=== PATIENT | male | born 1990 | race African-American/Black ===

== ENCOUNTER 2019-06-09 12:54 | Emergency (ER) | payer OTHER, SELFPAY ==
[2019-06-09 12:55] VITALS: BP 141/98; PULSE 88; RESP 14; TEMP 36.6; O2SAT 98; BMI 36.3
--- NOTE | 2019-06-09 13:24 | RAD_ITS ---
STUDY: X-RAY - LEFT FOOT CLINICAL: Male, 28 years old. Pain along the fourth toe following injury. TECHNIQUE: 3 view(s) of the foot. COMPARISON: None. FINDINGS: Normal talus, calcaneus, and tarsal bones. Normal visualized subtalar, talonavicular, calcaneocuboid, tarsal and tarsometatarsal articulations. Normal metatarsi. Normal metatarsophalangeal joint of the great toe. Normal tibial and fibular sesamoid bones. Normal interphalangeal joint of the great toe. Normal phalanges of the great toe. Normal second through fifth metatarsophalangeal joints. Normal interphalangeal joints and phalanges of the lesser toes. The soft tissue structures are unremarkable. RAD/Foot min 3 Views IMPRESSION: Normal x-ray examination of the foot. Electronically Signed: Deejay Espinal, at 13:52 EST , Service support ,
[2019-06-09 14:06] VITALS: RESP 16
--- NOTE | 2019-06-09 14:10 | ED.VISSUMM ---
- ER Visit Summary Date of Service: 06/09/19 Chief Complaint: Foot injury History of Present Illness: The patient is a 28 M who states that around 530 this morning he hit his left fourth toe on the crib. He noted pain. He notes continued swelling and pain near the DIP joint of the above toe. Physical Examination: Swelling and ecchymosis around the DIP joint of the left fourth toe. There is no subungual hematoma. No breaks in the skin. Test Results: X-rays of the foot revealed a nondisplaced distal phalanx fracture of the left fourth toe Emergency Department Course and Treatment: Patient will be treated with a postop shoe and pain medication. I will write him off of work today as he typically needs to wear steel toed boots. Impression: 1. Left fourth toe distal phalanx fracture This note was generated with [employer] dictation software. It may contain incorrect words, spelling, and punctuation that were not noted in review of the chart prior to signing ED Disposition - Plan for ED Patient: Disposition: Home or Assisted Living Instructions: FRACTURE, Toe [Closed] Prescriptions: Hydrocodone Bitart/Apap 5-325 [Benton 5MG-325MG] 1 tab PO Q6H PRN PRN 3 Days #10 tab PRN Reason: Pain Prescription Printed Referrals: Cesario Cannon DPM [STAFF PHYSICIAN] - 10-14 Days if not better
== END 2019-06-09 14:33 | disposition home or self-care (01) ==
PROVIDERS: Emergency Provider Emergency Medicine
DX: S92.534A Nondisplaced fracture of distal phalanx of right lesser toe(s), initial encounter for closed fracture (principal); W22.03XA Walked into furniture, initial encounter; Y93.9 Activity, unspecified; Y92.9 Unspecified place or not applicable; Y99.9 Unspecified external cause status; Z72.0 Tobacco use
CPT/HCPCS: 73630; 99283

== ENCOUNTER 2020-02-07 17:06 | Emergency (ER) | payer OTHER, SELFPAY ==
[2020-02-07 17:09] VITALS: BP 141/111; PULSE 103; RESP 18; TEMP 36.6; O2SAT 97; BMI 34.9
--- NOTE | 2020-02-07 17:43 | ED.DCSUM_ITS ---
History of Present Illness Chief Complaint: GI Bleed Detail of Chief Complaint: Patient vomited red material on Friday. Rhinorrhea cough Informant: Patient Onset: Days - Set of symptoms February 04 Context: Sudden Onset Timing: Continuous Quality: Respiratory symptoms and nausea and vomiting x1 of red appearing fluid. Location: [place] Current Severity: Mild Maximum Severity: Mild Worsened by: Nothing Relieved by: Nothing Associated Symptoms: Upper respiratory symptoms with cough and congestion Narrative: Is a 29-year-old male who is a smoker presents with 2 complaints. He had one episode of vomiting Friday morning that was red in color. He admits Friday night he went out to a bar and restaurant in [place] not wearing a mask. He denies fever or chills. He does report rhinorrhea congestion. He denies sore throat. Denies loss of taste or smell. His cough is nonproductive. He denies wheezing. He denies dyspnea or dyspnea on exertion. He denies orthopnea or PND. He denies black or maroon-colored stool. Emesis was not brown or coffee- ground in appearance. He denies orthostatic symptoms. He is not on an anticoagulant. Prior similar symptoms: No Recent Illness/Hospitalization: No - Past Medical History (1) No significant past medical history Status: Acute Past Medical History - Allergies and Home Meds Allergies/Adverse Reactions: Allergies No Known Allergies Allergy (Verified 02/07/20 17:09) Primary Care Physician: Hudson Flores MD [NON-STAFF] - As Needed Care Physician,No Primary [Primary Care Provider] - Prior records reviewed: No Past Medical History: None Surgical History: no surgical history Lives: Alone - And is single. Smoking Status: Current every day smoker Alcohol: Occasional Drugs: None Review of Systems General: Denies: Chills, Fever, Sweats Eyes: Denies: Visual changes - bilaterally, Diplopia ENT: Reports: Rhinorrhea. Denies: Bilateral ear pain, Left ear pain, Right ear pain, Sore throat, -, - Cardiovascular: Denies: Chest pain, Palpitations Respiratory: Reports: Cough. Denies: Dyspnea, Sputum, Dyspnea on exertion, Or thopnea, Paroxysmal nocturnal dyspnea, -, - Gastrointestinal: Reports: Nausea, Vomiting. Denies: Abdominal pain, Diarrhea, Melena, Hematochezia Genitourinary: Denies: Dysuria, Hematuria, Frequency Musculoskeletal: Denies: Myalgias, Arthralgias, Neck pain, Back pain, Swelling, Extremity Pain Skin: Denies: Rash, Wounds Neurological: Denies: Headache, Weakness, Numbness Endocrine: Denies: Polyuria, Polydipsia Hematologic: Denies: Easy bruising, Easy bleeding Physical Exam Vital Signs/Narrative: Vital Signs Temp Pulse Resp BP Pulse Ox 02/07/20 17:09 97.9 F 103 H 18 141/111 H 97 Inital Vital Signs reviewed: Yes General: Well nourished, Well developed, No Acute Distress Head: Normocephalic, Atraumatic Eyes: Perrl, EOMI ENT: Moist mucous membranes, TM's clear, Nasal congestion. Negative for: Dry mucous membranes, Sinus tenderness Neck: Supple, Nontender, No lymphadenopathy, No JVD Cardiovascular: Regular rate, Regular rhythm, No murmurs, Normal S1, Normal S2 Respiratory: No distress, CTA bilaterally, Chest nontender Abdomen: Soft, Nontender, Nondistended, Normal bowel sounds Back: Nontender, Normal Inspection. Negative for: CVA tenderness Extremities: Nontender, No edema. Negative for: Tenderness, Edema, Calf Tenderness Skin: Normal color, No rash Neurological: Alert, Oriented x3, Cranial nerves II-XII grossly intact, Normal Strength, Normal Sensation Psychological: Normal affect, Normal Mood Diagnostic/Tx/Re-eval Chest X-Ray - ED: 1 View, Read by ED Physician, Normal, Heart, Lungs, Mediastinum, Bony Structures, No Acute Disease, - - Double single view chest x- ray interpreted by me at 1849. Impressions Chest X-Ray 02/07/20 18:24 IMPRESSION: Normal x-ray examination of the chest. Electronically Signed: Neo Oliva MD at 19:03 EDT Tel , Service support , 02/07/20 18:24 Chest 1 View (Portable) [RAD] Stat Laboratory Results 02/07/20 02/07/20 02/07/20 17:45 17:45 17:45 WBC 7.8 RBC 4.71 Hgb 14.3 Hct 43.4 MCV 92.1 MCH 30.4 MCHC 32.9 RDW Std Deviation 42.8 RDW Coeff of Deandre 12.6 Plt Count 202 MPV 10.7 Immature Gran % (Auto) 0.300 Neut % (Auto) 56.5 Lymph % (Auto) 24.3 Benson % (Auto) 13.2 H Eos % (Auto) 5.1 H Baso % (Auto) 0.6 Absolute Neuts (auto) 4.4 Absolute Lymphs (auto) 1.90 Nucleated RBC % 0 Sodium 139 Potassium 3.9 Chloride 106 Carbon Dioxide 26.0 Anion Gap 7 BUN 11 Creatinine 1.12 Estim Creat Clear Calc 95.00 Est GFR (MDRD) Af Amer 100 Est GFR (MDRD) Non-Af 83 BUN/Creatinine Ratio 9.8 L Glucose 104 Lactic Acid 1.1 Calcium 9.0 Total Bilirubin 0.40 AST 72 H ALT 99 H Alkaline Phosphatase 111 Total Protein 8.4 H Albumin 3.8 Globulin 4.6 H Albumin/Globulin Ratio 0.8 L CBC, basic metabolic panel, is unremarkable. Lactate is normal. AST and ALT are elevated which may be secondary to the fact the patient drank heavily this weekend. Lab states his COVID test will not be back for another hour or longer. Will discharge with appropriate home-going instructions - Medical Decision Making History of going to [place] and out at restaurants and bars without mask and now complaining of rhinorrhea, cough, congestion and cough will test for COVID. This may represent viral upper restaurant infection versus COVID versus pneumonia. The vomiting occurred once and the fact that it was red would be highly unlikely to be an upper GI bleed. Most likely something he drank. ED Disposition - Plan for ED Patient: Disposition: Home or Assisted Living Diagnosis: Suspected COVID-19 virus infection Instructions: ED Upper Resp Infec No Abx Tx Referrals: Care Physician,No Primary [Primary Care Provider] - Hudson Flores MD [NON-STAFF] - As Needed Additional Instructions: You should self quarantine until you receive your COVID-19 test results. Test should be completed later on this evening.
[2020-02-07 17:48] VITALS: O2SAT 98
[2020-02-07 17:57] LABS: Absolute Neutrophil Count 4.4 X10^3/uL (2.0-7.7); Basophil# 0.05 X10^3/uL; Basophil% 0.6 % (0-1); Eosinophils% 5.1 % (0-5); Hematocrit 43.4 % (40-54); Hemoglobin 14.3 g/dL (13.0-16.5); Lymphocyte % 24.3 % (19-41); Mean Corp Hgb Conc 32.9 g/dL (32-36); Mean Corpuscular Hgb 30.4 pg (27.0-32.0); Mean Corpuscular Volume 92.1 fL (80-94); Mean Platelet Vol. 10.7 fl (6.2-12.0); Monocyte# 1.03 X10^3/uL; Monocyte% 13.2 % (0-10); NRBC Flagged by Analyzer 0 % (0-5); Neutrophil # 4.43 X10^3/uL (2.7-7.7); Neutrophil % 56.5 % (47-70); Platelet Count 202 K/mm3 (150-450); RBC Distribution Width CV 12.6 % (11.6-14.6); RBC Distribution Width SD 42.8 fl (35.1-43.9); Red Blood Count 4.71 M/mm3 (4.6-6.2); White Blood Count 7.8 K/mm3 (4.4-11.0)
[2020-02-07 18:14] LABS: ALB/GLOB Ratio 0.8 RATIO (0.9-2.4); AST(SGOT) 72 U/L (15-37); Alanine Aminotransfer ALT/SGPT 99 U/L (16-61); Albumin, Serum 3.8 g/dL (3.2-5.0); Alkaline Phosphatase 111 U/L (45-117); Anion Gap 7 (5-15); BUN 11 mg/dL (7-18); BUN/Creat Ratio 9.8 RATIO (10-20); Chloride 106 mmol/L (98-107); Creatinine, Serum 1.12 mg/dL (0.70-1.30); EST Glomerular Filtration Rate 83 mL/min (>60); Est Glom Filt Rate - Afr Amer 100 mL/min (>60); Globulin 4.6 g/dL (2.2-4.2); Glucose 104 mg/dL (74-106); Potassium 3.9 mmol/L (3.5-5.1); Protein, Total 8.4 g/dL (6.4-8.2); Sodium Level 139 mmol/L (136-145)
--- NOTE | 2020-02-07 18:24 | RAD_ITS ---
STUDY: X-RAY CHEST REASON FOR EXAM: Male, 29 years old. Threw up blood on Friday, runny nose and cough since then. TECHNIQUE: Single frontal view of the chest. COMPARISON: None. FINDINGS: The lungs are clear and expanded. There is no demonstrated pleural abnormality. Normal size heart. Normal mediastinum and bryce. Normal visualized pulmonary arteries. Normal visualized aortic arch and descending thoracic aorta. Normal visualized thoracic spine. Normal visualized ribs, clavicles, and shoulders. There is no demonstrated abnormality of the visualized soft tissue structures of the upper abdomen. RAD/Chest 1 View (Portable) IMPRESSION: Normal x-ray examination of the chest. Electronically Signed: Neo Oliva MD at 19:03 EDT Tel , Service support ,
[2020-02-07 18:30] LABS: Lactic Acid 1.1 mmol/L (0.4-1.9)
[2020-02-07 19:28] VITALS: PULSE 80; RESP 18; O2SAT 96
[2020-02-07 20:05] VITALS: BP 121/101; PULSE 84; RESP 20; O2SAT 98
== END 2020-02-07 20:12 | disposition home or self-care (01) ==
PROVIDERS: Emergency Provider Emergency Medicine
DX: Z03.818 Encounter for observation for suspected exposure to other biological agents ruled out (principal); R05 Cough; J34.89 Other specified disorders of nose and nasal sinuses; K92.0 Hematemesis; F17.200 Nicotine dependence, unspecified, uncomplicated
CPT/HCPCS: 71045; 80053; 83605; 85025; 87040; 87633; 87635; 99285; G2023; U0003

== ENCOUNTER 2020-03-09 16:07 | Emergency (ER) | payer OTHER, SELFPAY ==
[2020-03-09 16:07] VITALS: BP 118/94; PULSE 91; RESP 16; TEMP 36.4; O2SAT 97; BMI 36.8
--- NOTE | 2020-03-09 16:20 | ED.DCSUM_ITS ---
History of Present Illness Chief Complaint: Back Informant: Patient Onset: Yesterday Context: Gradual Onset Timing: Waxes and wanes Current Severity: Moderate Maximum Severity: Moderate Narrative: Patient presents with intermittent back spasms that started last evening. After work last night he was sitting on the couch watching TV. When he went to get up he felt some tightness in his back. He is had waxing and waning spasms since that time. It is somewhat worsened with movement and that when he twists to a certain degree his back will spasm. It does not radiate down his legs. He said no problems with bowel or bladder control. No history of kidney stones. He denies injury or change in activity. - Past Medical History (1) No significant past medical history Status: Chronic Past Medical History - Allergies and Home Meds Allergies/Adverse Reactions: Allergies No Known Allergies Allergy (Verified 03/09/20 16:09) Primary Care Physician: Care Physician,No Primary [Primary Care Provider] - Surgical History: no surgical history Smoking Status: Current every day smoker Review of Systems General: Denies: Chills, Fever Eyes: Denies: Visual changes - bilaterally ENT: Denies: Bilateral ear pain Cardiovascular: Denies: Chest pain Respiratory: Denies: Dyspnea, Cough Gastrointestinal: Denies: Abdominal pain, Nausea, Vomiting, Diarrhea Genitourinary: Denies: Dysuria Musculoskeletal: Reports: Back pain. Denies: Swelling, Extremity Pain Neurological: Denies: Headache, Weakness, Parasthesia Hematologic: Denies: Easy bruising, Easy bleeding Allergy: Denies: Uticaria Physical Exam Vital Signs/Narrative: Vital Signs Temp Pulse Resp BP Pulse Ox 03/09/20 16:07 97.6 F L 91 16 118/94 H 97 Inital Vital Signs reviewed: Yes General: Well nourished, Well developed Head: Normocephalic ENT: Moist mucous membranes Neck: Supple Cardiovascular: Regular rate, Regular rhythm Respiratory: No distress, CTA bilaterally Abdomen: Soft, Nontender Back: - - Reproducible tenderness in the upper lumbar region, midline as well as bilateral paraspinal muscles. No erythema or warmth. No rash or lesions. No CVA tenderness. Extremities: Nontender Skin: Normal color, No rash Neurological: Alert, Oriented x3, Normal Strength, Normal Sensation Psychological: Normal affect Diagnostic/Tx/Re-eval - Medical Decision Making Patient's exam is consistent with musculoskeletal pain. No red flags warnings for more significant etiology. He will be treated with anti-inflammatories and muscle spasm meds. 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 ED Disposition - Plan for ED Patient: Disposition: Home or Assisted Living Diagnosis: Back strain Instructions: ED Back Pain Acute or Chronic Prescriptions: cycloBENZAPRine HCl [Flexeril] 10 mg PO TID PRN #20 tab PRN Reason: Muscle Spasm Transmission Status: Pending to [id number] Naproxen [Naprosyn] 500 mg PO BID PRN PRN #20 tab PRN Reason: Pain Score 4-10/10 Transmission Status: Pending to [id number] Referrals: Karyn Mendoza MD [STAFF PHYSICIAN] - As soon as possible
== END 2020-03-09 17:07 | disposition home or self-care (01) ==
PROVIDERS: Emergency Provider Emergency Medicine
DX: S39.012A Strain of muscle, fascia and tendon of lower back, initial encounter (principal); M62.830 Muscle spasm of back; X58.XXXA Exposure to other specified factors, initial encounter; Y93.9 Activity, unspecified; Y92.9 Unspecified place or not applicable; Y99.9 Unspecified external cause status; F17.200 Nicotine dependence, unspecified, uncomplicated
CPT/HCPCS: 99282

== ENCOUNTER 2020-05-02 14:00 | Outpatient (RCR) | payer OTHER, SELFPAY ==
--- NOTE | 2020-04-04 15:31 | HP.PTEVAL_ITS ---
Patient's Visit Information SAUL LEE is a 29 year old M referred to Physical Therapy by Dr. Karyn Mendoza MD with a diagnosis of RADICULOPATHY,LUMBAR. Date of Evaluation: 04/04/20 Physical Therapist: Sj Zeng, PT, Cert MDT, OCS - Visit Plan Frequency: 2x /Week Duration: 4 Weeks Plan: PT INTERVENTIONS MODALTIES ,GRADED LUMBAR ROM ,POSTURAL EX'S,DLS LE FLEXABLITY - Subjective This 29y/o male presesnts to physical therapy with lumbar pain. Patient developed lumbar pain March 08 ,noticed at working lifting boxes then that evening when got home lifting some off from couch caused lumbar pain . Patient next day developed lumbar pain try to RTW but seen DR recommended PT ,provided muscle relaxers didnt help.Patient pain is symmtrical. Aggravating standing 10min ,sitting ,lifting ,bending. Alleviating symtoms change of postition. Denies parathesia/tingling. Bowel/bladder-. Coughing/sneezing-. Patient symptoms affects ability with job demands ,and housework tasks. Patient is currently off work ,RTW date . Patient symptoms affects QOL. SOCIAL; single. VOCATION: [employer] - Pain Bilateral Back Pain Intensity (Out of 10): 6 Pain Intensity Range: 10 - Objective POSTURE: mild foward posture,increase lordosis. GAIT: reciprocal pattern. PALAPTION: tender L-S region. SYMMTRIES: align. FLEXABLITY : hams mod loss. MMT: quads/hams 4/5,ankle 4/5,hip flexion 4-/5. LUMBAR ROM: flexion mod loss,extension mod loss -pain,side glides min loss pain to left - Special Tests L/S Slump test left side: Positive L/S Slump test right side: Positive L/S Left Straight Leg Raise: Positive L/S Right Straight Leg Raise: Positive - Goals Goal 1:: Patient to be I with HEP. Goal Time Frame: 4-6 Weeks Goal 2:: Patient decrease back mpain by 50 % or> to improve RTW. Goal Time Frame: 4-6 Weeks Goal 3:: Patient improve posture/body mechanics for job demands. Goal Time Frame: 4-6 Weeks Goal 4:: Patient to improve lumbar ROM for function of recovery Goal Time Frame: 4-6 Weeks Goal 5:: Patient improve back owestry score by 5 points or > to improve QOL and RTW. Goal Time Frame: 4-6 Weeks - Rehabilitation Potential Physical Therapy Diagnosis: This patient cdeveloped lumbar pain wih possible disc involment with decrease loss off motion flexion/extension with pain,postional symptoms affect ADL'S and return to job demands thus benifit from skilled PT. Rehabilitation Potential: Good - Anticipated Interventions Patient/Client Instruction: Educate patient on: Condition, Plan of Care For the Purpose of:: To decrease pain, To increase ROM, To improve muscle performance and motor function, To improve ability to perform ADL's, To increase tolerance to activity/condition/position, To improve ability of physical actions for home/community/work/leisure, To improve health of tissue, To decrease soft tissue restriction, To increase flexibility/ROM, To reduce risk of recurrence, To improve ability to perform tasks related to life management Therapeutic Exercise to Include: Strength training, Postural training, Flexibilty training, Passive ROM, Active ROM, Howie Exercises For the Purpose of:: To decrease pain, To increase ROM, To improve muscle perf ormance and motor function, To improve ability to perform ADL's, To increase tolerance to activity/condition/position, To improve ability of physical actions for home/community/work/leisure, To improve health of tissue, To decrease soft tissue restriction, To increase flexibility/ROM, To reduce risk of recurrence TENS: Yes IF ES: Yes Cryotherapy (ice pack, ice massage): Yes Thermo therapy (hot pack): Yes Ultrasound (thermal/non thermal): Yes For the Purpose of:: To decrease pain, To improve nutrient delivery to tissue, To increase oxygenation perfusion, To improve health of tissue, To decrease soft tissue restriction Thank you for the opportunity to evaluate your patient. For Medicare and Medicare HMO plans, please review the plan of care and approve it. It will need to be FAXED BACK to us at [phone] for Medicare purposes. For Medicare only, by signing this I certify the plan of care. Please let me know if there are questions or concerns regarding this plan of care. Physician Signature: Date:
--- NOTE | 2020-08-09 14:40 | HP.PT.NRP ---
SAUL LEE was seen in my office for initial evaluation on 04/04/20. The following Plan of Care was established for this patient: Initial Frequency: 2x /Week Initial Duration: 4 Weeks Patient/Client Instruction: Educate patient on: Condition, Plan of Care For the Purpose of:: To decrease pain, To increase ROM, To improve muscle performance and motor function, To improve ability to perform ADL's, To increase tolerance to activity/condition/position, To improve ability of physical actions for home/community/work/leisure, To improve health of tissue, To decrease soft tissue restriction, To increase flexibility/ROM, To reduce risk of recurrence, To improve ability to perform tasks related to life management Therapeutic Exercise to Include: Strength training, Postural training, Flexibilty training, Passive ROM, Active ROM, Howie Exercises For the Purpose of:: To decrease pain, To increase ROM, To improve muscle performance and motor function, To improve ability to perform ADL's, To increase tolerance to activity/condition/position, To improve ability of physical actions for home/community/work/leisure, To improve health of tissue, To decrease soft tissue restriction, To increase flexibility/ROM, To reduce risk of recurrence TENS: Yes IF ES: Yes Cryotherapy (ice pack, ice massage): Yes Thermo therapy (hot pack): Yes Ultrasound (thermal/non thermal): Yes For the Purpose of:: To decrease pain, To improve nutrient delivery to tissue, To increase oxygenation perfusion, To improve health of tissue, To decrease soft tissue restriction This patient was last seen in our office . Pertinent comments regarding their Physical therapy will appear below: Patient seen for PT for left lumbar radiculopathy with PT tx focusing on DLS ,postural ex's yo HEP. At this point I will be discontinuing this patient from physical therapy. I would be happy to see this patient again in the future if found appropriate by the physician. Thank you! Sj Zeng, PT, Cert MDT, OCS
== END 2020-05-02 19:00 | disposition home or self-care (01) ==
LOC: PT 14:00
PROVIDERS: Referring Provider Family Medicine; Visit Provider Family Medicine
DX: M54.16 Radiculopathy, lumbar region (principal)
CPT/HCPCS: 97014; 97110; 97161; G0283

== ENCOUNTER 2020-05-13 17:45 | Emergency (ER) | payer OTHER, SELFPAY ==
[2020-05-13 17:45] VITALS: BP 146/94; PULSE 101; RESP 16; TEMP 36.5; O2SAT 100
[2020-05-13 17:46] VITALS: BP 146/94; PULSE 96; RESP 16; TEMP 36.5; O2SAT 100; BMI 36.6
--- NOTE | 2020-05-13 17:55 | ED.DCSUM_ITS ---
History of Present Illness Chief Complaint: Lower Extremity Injury Informant: Patient Narrative: 29-year-old male presenting with bilateral foot pain which he feels in his heels and the bottoms of his feet. He states that he had back pain recently and was off of work for a couple of weeks. He states that when he went back to work his feet started to hurt. He does wear work boots. He states that they have been replaced. He states that he just has not been on his feet as much and working vigorously makes an ache. He has no history of gout. He has no history of trauma. He states that he has had intermittent swelling although his feet are not swollen today. Has not been taking anything for pain. Past Medical History - Allergies and Home Meds Allergies/Adverse Reactions: Allergies No Known Allergies Allergy (Verified 05/13/20 17:55) Primary Care Physician: Care Physician,No Primary [Primary Care Provider] - Past Medical History: - - No significant past medical history Surgical History: no surgical history Lives: Alone Smoking Status: Current every day smoker Alcohol: None Drugs: None Review of Systems General: Denies: Chills, Fever, Sweats Eyes: Denies: Visual changes - bilaterally, Diplopia ENT: Denies: Rhinorrhea, Sore throat Cardiovascular: Denies: Chest pain, Palpitations Respiratory: Denies: Dyspnea, Cough, Dyspnea on exertion Gastrointestinal: Denies: Abdominal pain, Nausea, Vomiting, Diarrhea, Melena, Hematochezia Genitourinary: Reports: Dysuria Musculoskeletal: Reports: - - Bilateral heel and foot pain Skin: Denies: Rash, Wounds Neurological: Denies: Headache, Weakness, Numbness Endocrine: Denies: Polyuria, Polydipsia, Heat intolerance, Cold intolerance, -, - Physical Exam Vital Signs/Narrative: Vital Signs Temp Pulse Resp BP Pulse Ox 05/13/20 17:46 97.7 F L 96 16 146/94 H 100 05/13/20 17:45 97.7 F L 101 H 16 146/94 H 100 General: Well nourished, Well developed, No Acute Distress Head: Normocephalic, Atraumatic Eyes: Perrl, EOMI Cardiovascular: Regular rate, Regular rhythm, No murmurs Respiratory: No distress, CTA bilaterally, Chest nontender Extremities: - - Tenderness to palpation to the bilateral heels the bottoms of the foot bilaterally. No swelling. There is no ecchymosis or rash. There is no deformities. Bilateral feet are neurovascularly intact.. Negative for: E anastacia, Calf Tenderness Skin: Normal color, No rash Neurological: Alert, Oriented x3 Psychological: Normal affect, Normal Mood Diagnostic/Tx/Re-eval Clinical Impression(s) from Imaging Studies Foot X-Ray 05/13/20 18:14 IMPRESSION: Normal x-ray examination of the foot. Electronically Signed: Jose De Jesus Soto MD at 19:19 EDT , Service support , Foot X-Ray 05/13/20 18:19 IMPRESSION: Normal x-ray examination of the foot. Electronically Signed: Jose De Jesus Soto MD at 19:20 EDT , Service support , - Medical Decision Making Patient presents with bilateral foot pain. Unable elicit some pain on the heels. He states it is worse in the morning. X-rays of the bilateral feet are negative. He is given Naprosyn in the ED. He requests a work note until his feet can get better. I suspect this is an overuse pain and possibly plantar fasciitis. Patient is given instructions on care. He is given return precautions. Impression: 1. Bilateral foot strain ED Disposition - Plan for ED Patient: Disposition: Home or Assisted Living Instructions: ED Sprain Foot Prescriptions: Naproxen [Naprosyn] 500 mg PO BID PRN #30 tab Transmission Status: Received by [facility]/pharmacy #[id number] Referrals: Care Physician,No Primary [Primary Care Provider] -
--- NOTE | 2020-05-13 18:14 | RAD_ITS ---
STUDY: X-RAY - RIGHT FOOT CLINICAL: Male, 29 years old. Ankle swelling and foot pain, no known injury. TECHNIQUE: 3 view(s) of the foot. COMPARISON: None. FINDINGS: Normal talus, calcaneus, and tarsal bones. Normal visualized subtalar, talonavicular, calcaneocuboid, tarsal and tarsometatarsal articulations. Normal metatarsi. Normal metatarsophalangeal joint of the great toe. Normal tibial and fibular sesamoid bones. Normal interphalangeal joint of the great toe. Normal phalanges of the great toe. Normal second through fifth metatarsophalangeal joints. Normal interphalangeal joints and phalanges of the lesser toes. The soft tissue structures are unremarkable. RAD/Foot min 3 Views IMPRESSION: Normal x-ray examination of the foot. Electronically Signed: Jose De Jesus Soto MD at 19:19 EDT , Service support ,
--- NOTE | 2020-05-13 18:19 | RAD_ITS ---
STUDY: X-RAY - LEFT FOOT CLINICAL: Male, 29 years old. Ankle swelling and foot pain, no known injury. TECHNIQUE: 3 view(s) of the foot. COMPARISON: 06/09/2019 FINDINGS: Normal talus, calcaneus, and tarsal bones. Normal visualized subtalar, talonavicular, calcaneocuboid, tarsal and tarsometatarsal articulations. Normal metatarsi. Normal metatarsophalangeal joint of the great toe. Normal tibial and fibular sesamoid bones. Normal interphalangeal joint of the great toe. Normal phalanges of the great toe. Normal second through fifth metatarsophalangeal joints. Normal interphalangeal joints and phalanges of the lesser toes. The soft tissue structures are unremarkable. RAD/Foot min 3 Views IMPRESSION: Normal x-ray examination of the foot. Electronically Signed: Jose De Jesus Soto MD at 19:20 EDT , Service support ,
[2020-05-13] MEDS: Naproxen 500 MG Tablet PO (18:35)
[2020-05-13 19:37] VITALS: PULSE 95; RESP 18; O2SAT 98
== END 2020-05-13 19:44 | disposition home or self-care (01) ==
PROVIDERS: Emergency Provider Student in an Organized Health Care Education/Training Program
DX: S96.911A Strain of unspecified muscle and tendon at ankle and foot level, right foot, initial encounter (principal); S96.912A Strain of unspecified muscle and tendon at ankle and foot level, left foot, initial encounter; X58.XXXA Exposure to other specified factors, initial encounter; Y93.9 Activity, unspecified; Y92.9 Unspecified place or not applicable; Y99.9 Unspecified external cause status; R30.0 Dysuria; F17.200 Nicotine dependence, unspecified, uncomplicated
CPT/HCPCS: 73630; 99283

== ENCOUNTER 2021-12-13 11:54 | Emergency (ER) | payer SELFPAY ==
[2021-12-13 11:55] VITALS: BP 157/96; PULSE 95; RESP 18; TEMP 36.7; O2SAT 99; BMI 34.9
--- NOTE | 2021-12-13 12:01 | RAD_ITS ---
STUDY: X-RAY CHEST REASON FOR EXAM: Male, 31 years old. Dry cough. TECHNIQUE: PA and lateral views of the chest. COMPARISON: Comparison is made with prior study 02/07/2020. FINDINGS: There is hyperinflation of the lungs consistent with chronic obstructive lung disease (COPD). There is no demonstrated pleural abnormality. Normal size heart. Normal mediastinum and bryce. Normal visualized pulmonary arteries. Normal visualized aortic arch and descending thoracic aorta. Normal visualized thoracic spine. Normal visualized ribs, clavicles, and shoulders. There is no demonstrated abnormality of the visualized soft tissue structures of the upper abdomen. RAD/Chest PA and Lateral IMPRESSION: Hyperinflation. Electronically Signed: Deejay Espinal MD at 12:24 EDT ,
--- NOTE | 2021-12-13 12:10 | EX.ED.DYSGE1 ---
HPI <MERA Sorto - Last Filed: 12/13/21 12:48> History of Present Illness Chief Complaint: Cough Narrative Narrative: 31-year-old male with history of tobacco use, presents to the emergency department with cough since last evening. Patient states that both of his children are ill, he developed a cough last night, and has difficulty sleeping secondary to cough. Patient denies any fevers or chills. Patient does state that he also has diarrhea however he denies any blood in stool or vomit. He did not get the COVID-19 vaccination, is not vaccinated for flu. PFSH <MERA Sorto - Last Filed: 12/13/21 12:48> [facility] Medical History no medical history Home Medications naproxen 500 mg PO BID PRN #30 tab 05/13/20 [Rx Last Taken Unknown] albuterol sulfate [ProAir RespiClick] 2 inh INHALATION Q6H PRN 14 Days #1 ea 12/13/21 [Rx Last Taken Unknown] Allergy/AdvReac Type Severity Reaction Status Date / Time No Known Allergies Allergy Verified 12/13/21 11:56 Surgical History no surgical history Social History Smoking Status: Current every day smoker tobacco type: cigarettes ROS <MERA Sorto - Last Filed: 12/13/21 12:48> ROS ED ROS Narrative Constitutional: Negative for fever, chills, weight loss, weakness Eyes: Negative for vision loss, vision change, double vision ENT: Negative for any sore throat, ear pain, congestion Cardiovascular: Negative for any chest pain, tightness, palpitations, racing heartbeat Respiratory: Negative for any sputum production, hemoptysis, shortness of breath, shortness of breath on exertion, orthopnea. Positive for cough Gastrointestinal: Negative for any abdominal pain, nausea, vomiting, constipation, blood in stool, blood in vomit. Positive for diarrhea : Negative for any urinary frequency, incontinence, dysuria, retention, blood in urine Muscle skeletal: Negative for any muscle joint pain, stiffness, myalgias, arthralgias, neck pain, back pain Neurological: Negative for any headache, dizziness, syncope, numbness or tingling Skin: Negative for any rashes, lumps, itching, abrasions, lacerations Psychiatric: Negative for any depression, anxiety, stress, suicidal ideation, homicidal ideation Hematologic: Negative for any easy bruising, excessive bruising, easy bleeding Allergies: Negative for any eczema, hives, rash EXAM <MERA Sorto - Last Filed: 12/13/21 12:48> Physical Exam Narrative Exam Narrative: Vital signs reviewed. HEET: Head normocephalic atraumatic, TMs clear bilaterally. Posterior pharynx is clear, moist mucous membranes. Nares clear bilaterally. Neck: Supple with no lymphadenopathy or tenderness. No signs of meningismus, negative jolt sign. Cardiac: Regular rate and rhythm no murmurs gallops or rubs, equal peripheral pulses bilaterally. Respiratory: Lungs clear to auscultation bilaterally. No chest tenderness. Dry cough Abdomen: Soft, nontender, nondistended. No abdominal bruit or pulsatile masses. No hepatosplenomegaly Extremities: No peripheral edema, no signs of gross trauma or deformity. Active full range of motion of all extremities. Neuro: Cranial nerves II through XII intact, no focal neurological deficits. Skin: Clean dry and intact with no rash, purpura, petechiae, vesicles or pustules. Backslash flank: No CVA tenderness, no midline spinal tenderness, no deformity. Psych: Normal mood and affect. No SI, HI or acute psychosis. Const Vital Signs: 12/13/21 11:55 Temperature 98.1 F Temperature Source Temporal Pulse Rate 95 Respiratory Rate 18 Blood Pressure 157/96 H Blood Pressure Mean 116 Pulse Ox 99 Oxygen Delivery Method Room Air Positive well nourished and well developed General Appearance ED: well developed <Chris Gonzalez MD - Last Filed: 12/13/21 22:00> Physical Exam Const Vital Signs: 12/13/21 11:55 Temperature 98.1 F Temperature Source Temporal Pulse Rate 95 Respiratory Rate 18 Blood Pressure 157/96 H Blood Pressure Mean 116 Pulse Ox 99 Oxygen Delivery Method Room Air MDM <MERA Sorto - Last Filed: 12/13/21 12:48> [facility] Narrative Medical decision making narrative: Patient appears well, patient appears nontoxic, vital signs are stable. Patient presents to the emergency department with complaints of a cough since last evening. Patient seems to be in no respiratory distress, patient did receive a chest x-ray, chest x-ray showed hyperinflation however no acute abnormality. Patient did receive a rapid COVID-19 test which was negative. I do believe the patient is suffering from a viral illness however due to the smoking history, patient was placed on albuterol inhaler and instructed to quit smoking. Patient verbally understands. At this time there is no indication of any antibiotics. Patient stable for discharge. Instructed return for worsening symptoms Radiography Diagnostic Testing: Clinical Impression(s) from Imaging Studies Chest X-Ray 12/13/21 12:01 IMPRESSION: Hyperinflation. Electronically Signed: Deejay Espinal MD at 12:24 EDT , <Crhis Gonzalez MD - Last Filed: 12/13/21 22:00> [facility] Narrative Medical decision making narrative: I have personally performed a face to face assessment of the patient and have reviewed the OLIVIA Note. I performed a substantive portion of the visit including all aspects of the following. My mims findings include: History is cough. Exam is [afebrile. Vital signs noted. Regular rate and rhythm. Lungs clear to auscultation bilaterally. Abdomen soft and nontender.] Medical Decision Making [check chest x-ray. Check rapid COVID. Discharge.] Other additions or changes: [None] Radiography Diagnostic Testing: Clinical Impression(s) from Imaging Studies Chest X-Ray 12/13/21 12:01 IMPRESSION: Hyperinflation. Electronically Signed: Deejay Espinal MD at 12:24 EDT , Discharge Plan Triage Chief Complaint: Cough ED Midlevel Provider: Levy Armenta ED Provider: Chris Gonzalez Dx/Rx/DC Orders Clinical Impression: Viral syndrome Instructions: Respiratory Viral Illness Ch Tx Prescriptions: New ProAir RespiClick 90 mcg/actuation aerosol powdr breath activated 2 inh inhalation Q6H PRN (Reason: shortness of breath) 14 Days Qty: 1 RF: 0 No Action naproxen 500 MG tablet 500 mg PO BID PRN Qty: 30 RF: 0 Primary Care Provider: Care Physician,No Primary Referrals: Luiz Mendes MD [STAFF PHYSICIAN] - Care Physician,No Primary [Primary Care Provider] - Activity Restrictions/Additional Instructions: Use albuterol inhaler as needed. Please use ibuprofen, Tylenol for any pain or fevers. Please maintain hydration Print Language: [place] Disposition Disposition: Home, Self Care Discharge Date/Time: 12/13/21 12:51
== END 2021-12-13 12:51 | disposition home or self-care (01) ==
PROVIDERS: Emergency Provider Emergency Medicine; Visit Provider Emergency Medicine
DX: B34.9 Viral infection, unspecified (principal); Z20.822 Contact with and (suspected) exposure to COVID-19; R19.7 Diarrhea, unspecified; F17.210 Nicotine dependence, cigarettes, uncomplicated; Z79.1 Long term (current) use of non-steroidal anti-inflammatories (NSAID)
CPT/HCPCS: 71046; 87811; 99282

== ENCOUNTER 2021-12-21 07:17 | Emergency (ER) | payer SELFPAY ==
[2021-12-21 07:18] VITALS: BP 151/97; PULSE 107; RESP 16; TEMP 36.2; O2SAT 97; BMI 34.2
--- NOTE | 2021-12-21 07:36 | ED.VIS.LOWEX ---
HPI History of Present Illness Chief Complaint: Lower Extremity Injury Narrative Narrative: 31-year-old male presenting with nontraumatic right ankle pain. He states that it started hurting yesterday. He describes it as the medial and lateral malleolus. He does not have any swelling. No numbness or tingling. He is ambulatory. He states he took ibuprofen last night but this did not help significantly. Patient states he is not able to work today due to pain. PFSH PFSH Home Medications naproxen 500 mg PO BID PRN #30 tab 05/13/20 [Rx Last Taken Unknown] albuterol sulfate [ProAir RespiClick] 2 inh INHALATION Q6H PRN 14 Days #1 ea 12/13/21 [Rx Last Taken Unknown] naproxen [Naprosyn] 500 mg PO BID PRN #20 tab 12/21/21 [Rx Last Taken Unknown] Allergy/AdvReac Type Severity Reaction Status Date / Time No Known Allergies Allergy Verified 12/21/21 07:18 Social History Smoking Status: Current every day smoker tobacco type: cigarettes ROS ROS ED Constitutional Constitutional ED: Denies chills, fever(s) or sweats Eyes Eyes: Denies blurry vision or change in vision ENT ENT ED: Denies ear pain or sore throat Cardiovascular Cardiovascular: Denies chest pain, palpitations or racing heartbeat Respiratory/Chest Respiratory/Chest: Denies cough, dyspnea or sputum Gastrointestinal Gastrointestinal: Denies abdominal pain, constipation, diarrhea, nausea or vomiting Genitourinary Genitourinary ED: Denies dysuria, hematuria or urinary frequency Musculoskeletal Musculoskeletal: Reports other Details: Right ankle pain Integumentary Denies abscess, Abrasions or rash Neurologic Neurologic: Denies headache(s), paresthesias or weakness Psychiatric Psychiatric: Denies anxiety, depression, suicidal ideation or suicidal thoughts Endocrine Endocrinology: Denies polydipsia or polyuria EXAM Physical Exam Const Vital Signs: 12/21/21 07:18 Temperature 97.2 F L Temperature Source Temporal Pulse Rate 107 H Respiratory Rate 16 Blood Pressure 151/97 H Blood Pressure Mean 115 Pulse Ox 97 Oxygen Delivery Method Room Air Positive well nourished General Appearance ED: NAD HEENT normocephalic and atraumatic Resp normal respiratory effort and clear to auscultation bilaterally Cardio regular rate and regular rhythm Extremity Extremity Narrative: Right foot and ankle exam. Tenderness palpation medial lateral malleolus. No foot tenderness. Pedal pulses 2+. Sensation intact. No obvious swelling, deformity, erythema. Psych mental status grossly normal Skin no wounds Lesions: no lesions Rashes: no rashes MDM MDM MDM Narrative Medical decision making narrative: After speaking with him at length he does state that he has old shoes that he does lean outward on his feet with these. He is not had any injury which would need x-rays. The patient himself states that he does not think it would have any value. He request a work note because of his pain. He is counseled to ice and elevate the right ankle. He will be given an Jorge wrap for comfort. He does not require crutches. He was given follow-up with a primary care provider as he is currently in between PCPs. Patient given a prescription for Naprosyn with first dose in the ER. Patient discharged home in stable condition. Impression: 1. Right ankle strain Discharge Plan Triage Chief Complaint: Lower Extremity Injury ED Provider: Sergo Vitale Dx/Rx/DC Orders Instructions: ED Ankle Sprain (Adult) Prescriptions: New naproxen [Naprosyn] 500 mg tablet 500 mg PO BID PRN (Reason: pain) Qty: 20 RF: 0 No Action naproxen 500 MG tablet 500 mg PO BID PRN Qty: 30 RF: 0 ProAir RespiClick 90 mcg/actuation aerosol powdr breath activated 2 inh inhalation Q6H PRN (Reason: shortness of breath) 14 Days Qty: 1 RF: 0 Primary Care Provider: Care Physician,No Primary Referrals: Go Pedraza MD [STAFF PHYSICIAN] - 3-5 Days Care Physician,No Primary [Primary Care Provider] - Disposition Disposition: Home, Self Care
[2021-12-21] MEDS: Naproxen 500 MG Tablet PO (07:51)
== END 2021-12-21 07:53 | disposition home or self-care (01) ==
PROVIDERS: Emergency Provider Student in an Organized Health Care Education/Training Program; Visit Provider Student in an Organized Health Care Education/Training Program
DX: S96.911A Strain of unspecified muscle and tendon at ankle and foot level, right foot, initial encounter (principal); X58.XXXA Exposure to other specified factors, initial encounter; F17.210 Nicotine dependence, cigarettes, uncomplicated
CPT/HCPCS: 99283

== ENCOUNTER 2022-08-16 12:00 | Emergency (ER) | payer SELFPAY ==
[2022-08-16 12:01] VITALS: BP 150/101; PULSE 81; RESP 18; TEMP 35.6; O2SAT 99; BMI 35.1
--- NOTE | 2022-08-16 13:11 | CM.ED ---
SW Note Referral Source: Case Find Referral Reason: No PCP, No insurance SW met with patient and introduced herself and role as [facility] Jelly. SW inquired about patient's current PCP and insurance. Patient stated he didn't have either and was interested in information. SW provided patient with Medicaid application as well as the IRE resource list and local PCPs with [facility] and [facility]. Patient was receptive towards information and voiced no other concerns or needs at this time. SW remains available if needs arise. Winsome Iglesias EDUCATIONAL DIAGNOSTICIAN, JOSSIE
--- NOTE | 2022-08-16 13:55 | ED.VIS.GI ---
HPI HPI - GI History of Present Illness Chief Complaint: Abd Pain Narrative Narrative: 31-year-old male with no significant medical history presents with right lower quadrant abdominal pain. Patient states this started this morning. He had a little bit of diarrhea today. No fever, chills, nausea, vomiting. He denies any trauma to the abdomen. He states he had no surgical history patient. Patient states has had this pain before and did not really think about it. He states it went away on its own but he is not sure how long it lasted. Patient told his mother of this pain and she sent him to be evaluated due to her concern for acute appendicitis. PFSH PFSH Medical History no medical history Home Medications NK 08/16/22 [History Last Taken Unknown] Allergy/AdvReac Type Severity Reaction Status Date / Time No Known Allergies Allergy Verified 08/16/22 12:02 Surgical History no surgical history Social History Smoking Status: Current every day smoker tobacco type: cigarettes ROS ROS ED Constitutional Constitutional ED: Denies chills or fever(s) ENT ENT ED: Denies rhinorrhea or sore throat Cardiovascular Cardiovascular: Denies chest pain or palpitations Respiratory/Chest Respiratory/Chest: Denies cough or dyspnea Gastrointestinal Gastrointestinal: Reports abdominal pain and diarrhea; Denies constipation, melena or nausea Genitourinary Genitourinary ED: Denies dysuria or hematuria Musculoskeletal Musculoskeletal: Denies arthralgias or back pain Integumentary Denies abscess or Abrasions Neurologic Neurologic: Denies headache(s) or paresthesias Psychiatric Psychiatric: Denies anxiety or depression Endocrine Endocrinology: Denies polydipsia or polyphagia EXAM Physical Exam Const Vital Signs: 08/16/22 12:01 Temperature 96.1 F L Temperature Source Temporal Pulse Rate 81 Respiratory Rate 18 Blood Pressure 150/101 H Blood Pressure Mean 117 Pulse Ox 99 Oxygen Delivery Method Room Air Positive well nourished General Appearance ED: NAD; Negative for pallor HEENT Reports moist mucous membranes normocephalic and atraumatic Eyes PERRL and EOMs intact bilaterally Neck no lymphadenopathy Resp normal respiratory effort and clear to auscultation bilaterally Cardio regular rate and regular rhythm GI Palpation: tender RLQ Extremity full ROM General Extremety ED: Negative for edema or tenderness General Extremity: Negative for edema Neuro CN's II-XII intact bilaterally, moves all extremities and no sensory deficits noted Sensorium / Orientation: alert Psych mental status grossly normal and thought process normal Skin no wounds General Skin Exam: Negative for jaundice or pallor MDM MDM MDM Narrative Medical decision making narrative: Patient presenting with right lower quadrant abdominal pain. He does report that he is had this before and it resolved on its own. He is not had a fever, nausea, vomiting. He does admit to some diarrhea today. He states his pain is not severe declines analgesia. He states he does not want to get for nausea. I do not suspect acute appendicitis based on his exam although he does have some right lower quadrant tenderness. This is very benign and is not requiring any medications to treat it. Also consider kidney stone in the diagnosis. I did obtain a urinalysis which was negative for occult blood or infection. CBC with differential to assess for evidence of infection and his white blood cell count is normal with no left shift with a normal hemoglobin and normal platelets. Renal function and electrolytes are within normal limits. At this point patient counseled that he likely does not have appendicitis and although I did offer a CT scan to them he declines. I did enrollment counselor him that if he has new or worsening pain or symptoms he should return to the emergency room. He acknowledged understanding this. Patient stable discharge at this time. Impression: 1. Right lower quadrant pain Lab Data Labs: Laboratory Results - last 24 hr 08/16/22 08/16/22 08/16/22 14:38 14:38 14:38 WBC 6.7 RBC 5.31 Hgb 16.2 Hct 48.0 MCV 90.4 MCH 30.5 MCHC 33.8 RDW Std Deviation 41.7 RDW Coeff of Deandre 12.6 Plt Count 240 MPV 9.9 Immature Gran % (Auto) 0.300 Neut % (Auto) 55.1 Lymph % (Auto) 31.4 Turner % (Auto) 9.8 Eos % (Auto) 2.5 Baso % (Auto) 0.9 Absolute Neuts (auto) 3.7 Absolute Lymphs (auto) 2.11 Nucleated RBC % 0 Sodium 137 Potassium 4.1 Chloride 105 Carbon Dioxide 26.0 Anion Gap 6 BUN 13 Creatinine 0.88 Estim Creat Clear Calc 118.75 Est GFR (MDRD) Af Amer 131 Est GFR (MDRD) Non-Af 108 BUN/Creatinine Ratio 14.8 Glucose 95 Calcium 9.7 Urine Color Yellow Urine Clarity Sl. Cloudy Urine pH 6.0 Ur Specific [place] 1.020 Urine Protein Negative Urine Glucose (UA) Normal Urine Ketones Negative Urine Occult Blood Negative Urine Nitrite Negative Urine Bilirubin Negative Urine Urobilinogen Normal Ur Leukocyte Esterase Negative Urine RBC 0 SEEN Urine WBC 0 SEEN Ur Squamous Epith Cells 0-5 SEEN Urine Bacteria 0 SEEN Urine Mucus 0 SEEN Discharge Plan Triage Chief Complaint: Abd Pain ED Provider: Sergo Vitale Dx/Rx/DC Orders Prescriptions: No Action NK Primary Care Provider: Care Physician,No Primary Referrals: Care Physician,No Primary [Primary Care Provider] -
[2022-08-16 14:45] LABS: Bacteria 0 SEEN /hpf (None Seen); Mucous, Urine 0 SEEN /hpf (<or=2+); Red Blood Cells-Urine 0 SEEN /hpf (0-5); White Blood Cells 0 SEEN /hpf (0-5)
[2022-08-16 14:47] LABS: Absolute Lymphocyte Count 2.11 X10^3/uL (0.83-4.51); Absolute Neutrophil Count 3.7 X10^3/uL (2.0-7.7); Basophil# 0.06 X10^3/uL; Basophil% 0.9 % (0-1); Eosinophil# 0.17 X10^3/uL; Eosinophils% 2.5 % (0-5); Hemoglobin 16.2 g/dL (13.0-16.5); Lymphocyte # 2.11 X10^3/ul (0.83-4.51); Lymphocyte % 31.4 % (19-41); Mean Corp Hgb Conc 33.8 g/dL (32-36); Mean Corpuscular Hgb 30.5 pg (27.0-32.0); Mean Corpuscular Volume 90.4 fL (80-94); Mean Platelet Vol. 9.9 fl (6.2-12.0); Monocyte# 0.66 X10^3/uL; Monocyte% 9.8 % (0-10); NRBC Flagged by Analyzer 0 % (0-5); Neutrophil # 3.71 X10^3/uL (2.7-7.7); Neutrophil % 55.1 % (47-70); Platelet Count 240 K/mm3 (150-450); RBC Distribution Width CV 12.6 % (11.6-14.6); RBC Distribution Width SD 41.7 fl (35.1-43.9); Red Blood Count 5.31 M/mm3 (4.6-6.2); White Blood Count 6.7 K/mm3 (4.4-11.0)
[2022-08-16 14:50] LABS: Color, Urine Yellow (Yellow); Glucose, Dipstick Normal (Normal); Ketone-Dipstick Negative (Negative); Leukocyte Esterase-Dipstick Negative /ul (Negative); Nitrite-Dipstick Negative (Negative); Occult Blood-Urine Negative /ul (Negative); Protein-Dipstick Negative (Negative); Urine Bilirubin Dipstick Negative (Negative); Urine Clarity Sl. Cloudy (Clear); Urine Urobilinogen Normal (Normal)
[2022-08-16 14:59] LABS: Squamous Epithelial Cells - UA 0-5 SEEN /hpf (0-5)
[2022-08-16 15:01] LABS: Anion Gap 6 (5-15); BUN 13 mg/dL (7-18); BUN/Creat Ratio 14.8 RATIO (10-20); Calcium,Total 9.7 mg/dL (8.5-10.1); Chloride 105 mmol/L (98-107); Creatinine, Serum 0.88 mg/dL (0.70-1.30); EST Glomerular Filtration Rate 108 mL/min (>60); Est Glom Filt Rate - Afr Amer 131 mL/min (>60); Estimated Creatinine Clearance 118.75 ml/min; Glucose 95 mg/dL (74-106); Potassium 4.1 mmol/L (3.5-5.1); Sodium Level 137 mmol/L (136-145)
== END 2022-08-16 16:05 | disposition home or self-care (01) ==
PROVIDERS: Emergency Provider Student in an Organized Health Care Education/Training Program; Visit Provider Student in an Organized Health Care Education/Training Program
DX: R10.31 Right lower quadrant pain (principal); F17.210 Nicotine dependence, cigarettes, uncomplicated; R19.7 Diarrhea, unspecified; R10.813 Right lower quadrant abdominal tenderness
CPT/HCPCS: 80048; 81001; 85025; 99283; A4216

== ENCOUNTER 2024-12-24 13:30 | Outpatient (RCR) | payer BC, SELFPAY ==
--- NOTE | 2024-11-23 10:44 | HP.PTEVAL_ITS ---
Patient's Visit Information Visit Information Visit Information: SAUL LEE is a 34 year old M referred to Physical Therapy by MERA Velazco with a diagnosis of LUMBAGO WITH SCIATICA. Date of Evaluation: 11/19/24 Physical Therapist: Sj Zeng, PT, Cert MDT, OCS Visit Plan Frequency: 2x /Week Duration: 4 Weeks Plan: PT INTERVENTIONS MANUAL THERAPY STICK /FOAM ROLL IT BAND, ROM/FLEXIBILITY HIPS ,STRENGTHENING HIP ( GLUT MEDIUS), CORE STRENGTHENING ,FUNCTIONAL STRENGTHENING , AND MODALITIES PRN Subjective Subjective: This 34 y/o male presents to physical therapy with lumbar radiculopathy. Patient seen DR and recommended PT lumbar x-ray - and hip x-rays showed Abundance of soft tissue with moderate symmetric bilateral hip narrowing. Patient has no back pain with lateral hip to knee . Patient has had left lateral hip pain since last February. Provided tramadol initially tried prednisone pack. Aggravating factors standing ,walking ,sitting worse. Described as burring, Alleviating rest ,otherwise nothing. C/O paresthesia/tingling left lateral leg. Coughing/sneezing -. Bowel /bladder-. Pain can affects sleeping. Patient condition affects QOL and function ./walking. Goals to decrease pain. VOCATION: [place] SOCIAL: Objective Objective: POSTURE : mild forward posture GAIT: ambulates with slight decrease stance time LLE antalgic gait PALAPTION: tender IT BAND and greater trochanter NEURO: occasional paresthesia/tingling left lateral hip ,reflexes L3-4,L4-5 , L5-S1 2/3 FLEXABILITY: hamstrings min tight ,piriformis mod tight PROM HIP : IR 45 ,ER 40 ,hip flexion 100 left ,right 105 degrees all with pain ER MMT: quads/hamstrings 4/5 ,( peak force) hip flexion 26.9 left ,29.9 right ,left hip 16.9 , LUMBAR ROM : flexion min loss ,extension min loss,side glides min loss Special Tests L/S Slump test left side: Negative L/S Slump test right side: Negative L/S Left Straight Leg Raise: Negative L/S Right Straight Leg Raise: Negative R Hip Trendelenberg - Glut Medius: Positive L Hip Scour: Positive L Hip Trendelenberg - Glut Medius: Positive Balance/Special Test Scores Oswestry Low Back Score: 20 Goals Goal 1:: Patient to be I with HEP for lumbar Goal Time Frame: 4-6 Weeks Goal 2:: Patient to improve hip ROM by 5-10 degrees without pain to improve stairs Goal Time Frame: 4-6 Weeks Goal 3:: Patient to improve back oswestry score by 5 points to improve QOL Goal Time Frame: 4-6 Weeks Goal 4:: Patient to demonstrate 50 % improvement with less pain and improve function and gait Goal Time Frame: 4-6 Weeks Goal 5:: Patient to improve peak force hip abduction and flexion by 5-10# to improve gait. Goal Time Frame: 4-6 Weeks Rehabilitation Potential Physical Therapy Diagnosis: This patient has left hip pain worse than right with decrease ROM ,weakness ,pain worse with walking and standing affects daily function thus benefit from skilled PT Rehabilitation Potential: Good Anticipated Interventions Patient/Client Instruction: Educate patient on: Condition and Plan of Care For the Purpose of:: To decrease pain, To increase ROM, To improve muscle performance and motor function, To improve ability to perform ADL's, To increase tolerance to activity/condition/position, To improve ability of physical actions for home/community/work/leisure, To improve health of tissue, To decrease soft tissue restriction, To increase flexibility/ROM, To reduce risk of recurrence and To improve tolerance to ADL's Therapeutic Exercise to Include: Strength training, Postural training, Flexibilty training, Dynamic Lumbar Stabilization and Howie Exercises For the Purpose of:: To decrease pain, To increase ROM, To improve muscle performance and motor function, To increase tolerance to activity/condition/position, To improve ability of physical actions for home/community/work/leisure, To improve health of tissue, To decrease soft tissue restriction, To increase flexibility/ROM, To reduce risk of recurrence and To improve tolerance to ADL's Manual Therapy Techniques to Include: Soft tissue mobilization Comment: IT BAND For the Purpose of:: To decrease pain, To increase ROM, To improve nutrient delivery to tissue, To increase oxygenation perfusion, To improve health of tissue, To decrease soft tissue restriction and To increase flexibility/ROM TENS: Yes IF ES: Yes Cryotherapy (ice pack, ice massage): Yes Thermo therapy (hot pack): Yes Ultrasound (thermal/non thermal): Yes For the Purpose of:: To increase ROM, To improve nutrient delivery to tissue, To increase oxygenation perfusion, To improve health of tissue and To decrease soft tissue restriction Text: Thank you for the opportunity to evaluate your patient. For Medicare and Medicare HMO plans, please review the plan of care and approve it. It will need to be FAXED BACK to us at [phone] for Medicare purposes. For Medicare only, by signing this I certify the plan of care. Please let me know if there are questions or concerns regarding this plan of care. Physician Signature: Date:
--- NOTE | 2025-04-11 17:31 | HP.PTDCSUM ---
Discharge Summary D/C summary: It has been my pleasure to treat SAUL LEE referred by Sweta Cardoso NP-C, with the diagnosis of LUMBAGO WITH SCIATICA for a total of 6 visit(s). Discharge Date: Please see the following information for a summary of their discharge status. Subjective Subjective: Pain is about same Work makes symptoms worse Pain L hip: Pain Intensity (Out of 10): 4 R hip: Pain Intensity (Out of 10): 0 Overall Improvement % Improvement: 0 Objective Objective/Function: POSTURE : mild forward posture GAIT: ambulates with RECIPROCAL PATTERN PALAPTION: tender IT BAND and LEFT greater trochanter NEURO: occasional paresthesia/tingling left lateral hip ,reflexes L3-4,L4-5 ,L5-S1 2/3 FLEXABILITY: hamstrings min tight ,piriformis mod tight PROM HIP : IR 45 ,ER 40 ,hip flexion 95 left ,right 105 degrees all with pain ER MMT: quads/hamstrings 4/5 ,( peak force) hip flexion 26.9 left ,29.9 right ,left hip 16.9 , LUMBAR ROM : flexion min loss ,extension min loss,side glides min loss Goals Goal 1:: Patient to be I with HEP for lumbar Goal 2:: Patient to improve hip ROM by 5-10 degrees without pain to improve stairs Goal 3:: Patient to improve back oswestry score by 5 points to improve QOL Goal 4:: Patient to demonstrate 50 % improvement with less pain and improve function and gait Goal 5:: Patient to improve peak force hip abduction and flexion by 5-10# to improve gait. Plan Plan: RTD SYMPTOMS APPEAR TO BE BURSITIS OF LEFT HIP WITH IT BAND D/C Information d/c sentence: If there are questions or concerns regarding this patient's physical therapy, please feel free to call me at [phone]. Thank you for the referral of this patient. Sincerely, Sj Zeng, PT, Cert MDT, OCS Balance/Gait/Functional tests Balance/Special Test Scores Oswestry Low Back Score: 20 Improvement % Improvement: 0
== END 2024-12-24 19:00 | disposition home or self-care (01) ==
LOC: PT 13:30
PROVIDERS: PCP Nurse Practitioner Family; Referring Provider Nurse Practitioner Family; Visit Provider Nurse Practitioner Family
DX: M54.42 Lumbago with sciatica, left side (principal)
CPT/HCPCS: 97110; 97140; 97161; 97530

== ENCOUNTER → 2025-01-27 | Outpatient (CLI) | payer BC, SELFPAY ==
[2025-01-27 12:52] LABS: Erythrocyte Sedimentation Rate 44 mm/hr (0-20)
[2025-01-27 13:27] LABS: Rheumatoid Factor 13.7 IU/mL (<15)
[2025-01-28 12:08] LABS: ANTINUCLEAR ANTIBODIES DIRECT Negative (Negative)
[2025-01-28 14:09] LABS: CCP IgG Antibodies 9 units (0-19)
== END | disposition home or self-care (01) ==
LOC: BFHLAB 09:53
PROVIDERS: PCP Nurse Practitioner Family; Visit Provider Family Medicine
DX: M25.50 Pain in unspecified joint (principal)
CPT/HCPCS: 36415; 85652; 86038; 86140; 86200; 86431

== ENCOUNTER → 2025-04-05 | Outpatient (CLI) | payer BC, SELFPAY ==
[2025-04-05 15:28] LABS: Hematocrit 46.0 % (40-54); Hemoglobin 15.7 g/dL (13.0-16.5); Immature Granulocytes Count 0.020 X10^3/uL (0.0-0.0); Mean Corp Hgb Conc 34.1 g/dL (32-36); Mean Corpuscular Volume 90.2 fL (80-94); Mean Platelet Vol. 11.2 fl (6.2-12.0); NRBC Flagged by Analyzer 0 % (0-5); Platelet Count 177 K/mm3 (150-450); RBC Distribution Width CV 13.0 % (11.6-14.6); RBC Distribution Width SD 43.3 fl (35.1-43.9); Red Blood Count 5.10 M/mm3 (4.6-6.2); White Blood Count 4.6 K/mm3 (4.4-11.0)
[2025-04-05 15:54] LABS: AST(SGOT) 153 U/L (<=37); Alanine Aminotransfer ALT/SGPT 156 U/L (<=46); Albumin, Serum 4.5 g/dL (3.5-5.0); Alkaline Phosphatase 105 U/L (40-129); Anion Gap 13 (5-15); BUN 9 mg/dL (4-19); BUN/Creat Ratio 11.4 RATIO (10-20); Calcium,Total 9.4 mg/dL (7.6-11.0); Carbon Dioxide 21.0 mmol/L (21.0-32.0); Chloride 103 mmol/L (98-108); Globulin 3.7 g/dL (2.2-4.2); Glucose 95 mg/dL (70-99); Potassium 4.3 mmol/L (3.3-5.1)
[2025-04-12 14:09] LABS: Cotinine Screen Blood 224.8 ng/mL (.)
== END | disposition home or self-care (01) ==
LOC: BFHLAB 13:30
PROVIDERS: PCP Family Medicine; Visit Provider Family Medicine
DX: Z01.818 Encounter for other preprocedural examination (principal); F17.200 Nicotine dependence, unspecified, uncomplicated
CPT/HCPCS: 36415; 80053; 80323; 85025; G0480

== ENCOUNTER 2025-04-15 11:28 | Day surgery (SDC) | payer BC, SELFPAY ==
[2025-04-15] VITALS (9 sets, daily range): BP systolic 134–176; BP diastolic 89–99; PULSE 80–101; RESP 16–20; TEMP 36.1–37; O2SAT 94–98; BMI 36.5
--- NOTE | 2025-04-15 11:48 | DCINST_ITS ---
Discharge Instructions DC O2, CPAP, BIPAP needs Home O2 Discharge instructions: No Dressing / Incision Discharge Activity: May Not Drive (May not drive until cleared by physician) and May Shower (May shower utilizing cast bag covering to the left lower extremity to keep all dressings clean, dry, and intact) Weight Bearing Status: No weight bearing (Remain nonweightbearing to the left lower extremity with the assistance of crutches or knee scooter) Keep extremity elevated above heart level: Left Leg (Elevate left lower extremity at all times of rest for postoperative edema control) Dressing / Incision Call your doctor if you observe: Fever of 101 or Higher, Shortness of breath, Chest pain, Calf discomfort and Uncontrolled pain Change Dressing in: do not change dressing Remove Dressing in: leave in place till F/U (Do not change dressing. Leave dressing in place. Positional change dressing at first postoperative visit) Cleanse incision/area with: Do not get Incision Wet and Keep Dressing Clean & Dry (Do not get dressings wet. Please utilize cast bag when showering to keep dressings clean, dry, and intact to the left lower extremity) Follow Up Care Please Follow Up With: Irvin Samuels DPM When: Patient has first postoperative appointment in office next week Test Results: Test results from this visit will be discussed in further detail at your follow- up appointment, if applicable. Discharge Plan Admission Attending Provider: Irvin Samuels Primary Care Provider: Karyn Mendoza Instructions Print Language: Mohawk Discharge Orders/Prescriptions Prescriptions: New aspirin 325 mg capsule 325 mg PO DAILY Qty: 56 0RF doxycycline hyclate 100 mg capsule 100 mg PO DAILY Qty: 10 0RF oxycodone-acetaminophen 5-325 mg tablet 1 tab PO Q6H 7 Days Qty: 42 0RF Referrals / Follow Up: Karyn Mendoza MD [Primary Care Provider] - Disposition Disposition (needs filled in before D/C Order can be placed): Home, Self Care
--- NOTE | 2025-04-15 11:56 | PCM.OPRPT ---
Problems Associated Problem List Diagnoses (1) Pain in joint of left foot: (2) Arthritis of left foot: (3) Pain in left foot: Operative Report (Standard) Operative Information Date of Procedure: 04/15/25 Pre-Operative Diagnosis: 1. Subtalar joint arthritis left foot 2. Pain left foot Post-Operative Diagnosis: 1. Subtalar joint arthritis left foot 2. Pain left foot Surgery/Procedure Performed: 1. Subtalar joint arthrodesis left foot 2. Debridement of Os trigonum left foot 3. Application of AO splint left foot cardroom hand: Yes Puncher And Fastener: Jayro Akers DPM PGY-2 Tasks completed by application assistant: Closing, Dissecting tissue, Implanting device, Altering tissue, Retracting and Other (joint preparation) Type of Anesthesia: General/Regional (Popliteal block left lower extremity) RN Documented Start/Stop Times: Operation Date: 04/15/25 13:00 Case Time Into Pre-Op 04/15/25 11:34 Anesthesia Start 04/15/25 12:42 Into Room 04/15/25 12:42 Procedure Start 04/15/25 13:13 Procedure End 04/15/25 15:42 Anesthesia End 04/15/25 15:43 Out of Room 04/15/25 15:43 Into Recovery 04/15/25 15:45 Procedure Start Time: 13:13 Procedure Stop Time: 15:42 Select all DRAINS/GRAFTS/IMPLANTS that apply: Implanted device Implanted device details: Two 6.7 x 85 mm partially-threaded cannulated screw (Arthrex) Estimated Blood Loss: 5mL Specimen collected: No Description of surgery: HPI/indication: Patient is a 34-year-old male who presented to office in early February for complaint of painful arthritis of the left foot/hindfoot. Reports he was supposed to undergo surgical intervention on this foot however his case was canceled the COVID-19 pandemic. He states after another year had passed he did suffer a fall/injury to the right foot in which eventually the subtalar joint developed significant pain and arthritic deformity which he did undergo surgical intervention at that time with Dr. Chong in [place] in 2023. States that his left foot has continued to hurt him however he never did follow back with Dr. Chong and decided to follow with a local provider. Radiographs were obtained of the left foot 02/11/2025 and discussed with the patient in addition to his right foot radiographs demonstrating subtalar joint arthrodesis with screw placement without evidence of failure. He did demonstrate pain on examination about the subtalar joint and with range of motion of the joint and thus MRI was ordered for further evaluation and for surgical planning. 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 Also noted is a moderate-sized os trigonum with slight marrow edema in the os trigonum adjacent to the posterior talus related to the arthritic deformity and posterior impingement. There was no evidence of peroneal tendon tear or flattening. These findings were discussed with him in office and the patient did elect to proceed forward with surgical intervention as his pain has become too great to where it affects his ability to work and perform daily activities. I did discuss the procedure with him in detail. Discussed the typical postoperative course. Discussed the risks and complications of the procedure. Discussed that the risks include but are not limited to the following: Pain, continued pain, complex regional pain syndrome, neuritis/numbness, infection, scarring, poor cosmetic result, dehiscence, delayed healing/nonhealing, nonunion/malunion, pseudo arthrodesis, continued arthritic deformities, need for further surgical procedures/intervention, edema, overcorrection/under correction, scar tissue, hardware failure, symptomatic hardware, difficulty wearing shoe gear, difficulty with ambulation, inability to wear shoe gear, inability to run, difficulty with adapting to uneven terrain, postoperative arthritis, blood clot, allergic reaction, addiction to pain medication, stroke, heart attack, loss of function, loss of limb, loss of life. Patient is understanding of these and was able to repeat these back. Patient does wish to proceed forward with the surgical intervention at this time. I have also discussed the need to stop smoking with the patient as nicotine use does impact healing status of his fusion and increases his chances of nonunion. Patient is understanding that he does need to quit in order to have optimal outcome following the surgical procedure. Following discussion patient did sign all necessary surgical consent forms freely at his own will. No promises were made. No guarantees were given. Patient was scheduled for surgical intervention at [facility] on 04/15/2025 for subtalar joint arthrodesis of the left foot. Patient was seen prior to entering the OR and operative limb was marked. Procedure: Under mild sedation patient brought to the operating placed on table supine position and secured to table with safety belt. [place] bump was placed underneath the left hip and left foot was elevated via a blanket bump. Patient did undergo popliteal block by anesthesia team prior to entering the OR while in PACU. A well-padded pneumatic thigh tourniquet was placed on the patient's left thigh. Left foot and leg was scrubbed, prepped, and draped in the usual aseptic manner. Sterile [place] wrapping was placed about the digits of the foot. Under guidance of fluoroscopy incision placement was mapped prior to start of procedure. Esmarch bandage was utilized to exsanguinate the left lower extremity, the left lower extremity was elevated and the pneumatic thigh tourniquet was inflated to 300 mmHg. At this time attention was directed to the left lower extremity where a linear incision was made just from the distal tip of the fibula and slightly posterior to this and extended distally along the subtalar joint to the anterior head of the talus utilizing a #15 blade. Incision was deepened via sharp and blunt dissection. Care was taken to identify and retract all vital neurovascular structures. Small venous branches were identified and cauterized as necessary. The peroneal tendons were then identified and retracted inferiorly and protected throughout the duration of this case. The calcaneofibular ligament was then visualized and transected. Incision was deepened overlying the sinus tarsi utilizing Littler scissor. The talocalcaneal ligament and interosseous ligament of the sinus tarsi were then identified and transected for increased mobilization and joint preparation. Under guidance of fluoroscopy intermittent distractor was then placed via 2.0 K wire in the subtalar joint was opened at the operative field. Upon visualization of the subtalar joint there is noted to be significant cartilaginous defects to the posterior aspect of the subtalar joint on both the talar portion and calcaneal portions respectively. There is small cartilaginous fragments within the joint consistent with severe degenerative end-stage arthritis. Middle facet was then visualized demonstrating significant wearing and thinning of the talar and calcaneal portions of the middle facet however these are noted to be not as severe as the posterior portion. Next, utilizing curette the posterior facet on the calcaneal aspect was debrided of all cartilaginous materials and osseous debris. Following this the plantar aspect of the talus of the posterior facet was then debrided of all cartilaginous materials and osseous debris's. Next, the os trigonum portion was debrided to allow for improved arthrodesis position. After the posterior facet was debrided of all cartilaginous materials and osseous debris's attention was then directed towards the middle facet on the calcaneal aspect which was debrided of all remaining cartilage and osseous debris's to healthy bleeding bone, followed by the superior/plantar aspect of the talar portion of the middle facet. Following debridement the joint was again prepped with an osteotome to scrape and smoothed any portions of remaining cartilaginous defect to healthy bleeding bone. The site with copious amounts of normal sterile saline. Was then flushed next, utilizing a 2.0 K wire subchondral drilling was performed about the posterior facet on both the talar portion and calcaneal portion in addition to the middle facet for the talar portion and calcaneal portion to augment the arthrodesis site. Healthy bleeding bone was noted following this. Next, an 0.045 K wire was also utilized for subchondral drilling in the same manner to the same portions of the posterior facet and middle facet as described earlier to increase surface area for optimal fusion. Next, Arthrocell bone grafting was placed for a total of 3 cc was placed throughout the middle facet posterior facet fusion sites to aid in augmentation of fusion as patient is a smoker. Next, under guidance of fluoroscopy temporary fixation via K wire was placed and viewed in multiple fluoroscopic planes and noted to be in excellent position. Small incision was made close to the K wire utilizing a #15 blade to allow for screw purchase/placement. Following AO principles Two Arthrex 6.7 x 85 mm partially-threaded cannulated screws were inserted over the guidewires with excellent compression noted across the fusion site and multiple fluoroscopic views. Guidewires were then removed and final fluoroscopic imaging was obtained in multiple fluoroscopic views demonstrating excellent positioning of the subtalar joint arthrodesis. Screw sites were flushed utilizing copious amounts of normal sterile saline. The ankle did undergo range of motion demonstrating free and smooth dorsiflexion and plantarflexion. Subtalar joint underwent attempted range of motion with no motion occurring demonstrating solid arthrodesis site. The small stab incisions were closed utilizing 2-0 Prolene in simple interrupted fashion. The deep tissues were closed utilizing 2-0 Vicryl. A subcuticular stitch was then performed utilizing 4-0 Monocryl. At this time the pneumatic thigh tourniquet was deflated and a prompt hyperemic response was noted to the digits of the left foot. The skin was then reapproximated utilizing 2-0 Prolene in simple interrupted fashion. Incision site was then dressed with Betadine soaked Adaptic, 4 x 4 gauze, ABD x 2, Kerlix, Webril cast padding, 4 inch Jorge wrap and 6 inch Jorge wrap. A well molded AO splint was then applied to the left lower extremity and anchored into position with a 4 inch and 6 inch Jorge wrap and modified Balbuena compression fashion. Patient tolerated the procedure and anesthesia well was transported the PACU with vital signs stable and vascular status intact to the left foot. Patient does have discharge instructions outlining his aftercare given to him and family. Patient is instructed to take all postoperative medications as instructed. He is to keep left foot elevated at all times of rest to aid in postoperative edema control. He is to keep all dressings clean, dry, and intact to the left foot. He is also to remain nonweightbearing to the left lower extremity utilizing crutches and knee scooter. He may also utilize ice behind the left knee to aid in postoperative pain control. Patient and family are understanding of these postoperative instructions. He was also informed as earlier per our discussion of the need for smoking cessation to optimize arthrodesis status. His family is also aware of this discussion and will ensure that he stop smoking for best surgical outcome. Patient will continue to follow in office for postoperative care with appointment next week. Surgical Findings: See operative note for findings Complications Complications: No Admit VTE Documentation VTE Present on Admission: No VTE Mechan Device Prophylaxis: SCD's VTE Pharm Prophylaxis ordered?: Yes
[2025-04-15] MEDS: Lactated Ringers 1,000 ML 15 ML IV (12:00)
--- NOTE | 2025-04-15 12:23 | PRE.ANES_ITS ---
ASA Classification* ASA Classification ASA Classification: 3 Assessment & Plan Anesthesia* Anesthesia Assessment Anesthesia Assessment: Discussed sedation and/or anesthesia options, risks, benefits, and alternatives with patient/parents/legal guardian/POA. Questions invited. The patient/parents/legal guardian/POA seems to understand and agrees to proceed with anesthesia plan. Reviewed the physical assessment, medical history, allergy history and patient home medications list prior to surgery/procedure/anesthetic and documented any changes. Performed airway and anesthesia risk assessments. Anesthesia Type Anesthesia Type: General and Block (request distal sciatic n block) Anesthesia Focused Assessment* Temperature: 98.6 F Pulse Rate: 80 Blood Pressure: 134/98 Respiratory Rate: 18 Pulse Ox: 98 Airway Assessment Mouth opens: >3 cm Mallampati Score: III Labs Anesthesia Preop lab: CBC WBC 4.6 K/mm3 (4.4-11.0) 04/05/25 13:04/05/25 RBC 5.10 M/mm3 (4.6-6.2) 04/05/25 13:04/05/25 Hgb 15.7 g/dL (13.0-16.5) 04/05/25 13:04/05/25 Hct 46.0 % (40-54) 04/05/25 13:04/05/25 Plt Count 177 K/mm3 (150-450) 04/05/25 13:04/05/25 CHEMISTRY Potassium 4.3 mmol/L (3.3-5.1) 04/05/25 13:04/05/25 Sodium 137 mmol/L (133-145) 04/05/25 13:04/05/25 BUN 9 mg/dL (4-19) 04/05/25 13:04/05/25 Creatinine 0.77 mg/dL (0.70-1.20) 04/05/25 13:04/05/25 Glucose 95 mg/dL (70-99) 04/05/25 13:04/05/25 COAG Pre-Assessment Diagnosis/Proposed Procedure Planned Operative Procedure(s): (L) Arthrodesis of the left Subtalar joint, Debridement of a painful Os Trigonum of the left foot with application of a AO splint. Anesthesia History Anesthesia History - engineering laboratory technician: Anesthesia History - engineering laboratory technician Hx Hospitalization No 04/08/25 10:51 Any Problems With Anesthesia No 04/08/25 10:51 Cholinesterase deficiency No 04/08/25 10:51 You/Your Family Experience No 04/08/25 10:51 fever (hyperthermia) with Relationship Recent Exposure to Contagious No 04/15/25 11:56 Disease Does patient have nerve No 04/08/25 10:51 stimulator Patient instructed to have device shut off --Does patient have Pacemaker No 04/15/25 11:56 or ICD? When Was Last Pacemaker Check QUESTION #4 FULL TEXT: You/Your Family Experience fever (hyperthermia) with Anesthesia Last Oral Intake Last Oral intake: Last Oral Intake NPO since 21:00 04/15/25 11:56 Meds taken in AM with sips of No 04/15/25 11:56 water? Meds patient instructed to take am of surgery PONV PONV - engineering laboratory technician: PONV - engineering laboratory technician Female No 04/08/25 10:51 HX of Motion Sickness No 04/08/25 10:51 HX of N/V After Surgery No 04/08/25 10:51 Non-Smoker No 04/08/25 10:51 Duration of Surgery greater Yes 04/08/25 10:51 than 60 minutes Number of Risk Factors 1 04/08/25 10:51 PONV Score Low Risk 04/08/25 10:51 Height & Weight Height & Weight: Anesthesia: Height & Weight Height 5 ft 8 in 04/15/25 11:56 Weight: 108.9 kg 04/15/25 11:56 Body Mass Index (BMI) 36.5 04/15/25 11:56 Respiratory Assessment Respiratory Assessment - engineering laboratory technician: Respiratory Tract Infection Hx - engineering laboratory technician Hx Respiratory Tract Infection No 04/08/25 10:51 STOP Sleep Apnea STOP Sleep Apnea - engineering laboratory technician: STOP Sleep Apnea - engineering laboratory technician Hx Hypertension No 04/08/25 10:51 Hx Sleep Apnea No 04/08/25 10:51 CPAP BIPAP Do you snore loudly (louder No 04/08/25 10:51 than talking or can be heard Do you often feel tired/ No 04/08/25 10:51 fatigued/ sleepy during daytime? Has anyone observed you stop No 04/08/25 10:51 breathing during sleep? STOP Results Negative 04/08/25 10:51 QUESTION #5 FULL TEXT : Do you snore loudly (louder than talking or can be heard through closed doors)? Tobacco Use History Tobacco Use History - engineering laboratory technician: Tobacco Use History - engineering laboratory technician Tobacco Use Smoking Status Current every day smoker 04/08/25 10:51 Hx Tobacco Use Yes 04/08/25 10:51 Years Smoking Packs Smoked per Day Smoking Cessation Date was within the last 15 years Hx Smoking Cessation Date Hx Smoking Cessation Counseling Hematologic Medial History Hematologic Hx - engineering laboratory technician: Hematologic Medical Hx - fermentation scientist Hx of Blood Transfusion No 04/08/25 10:51 Hx of Transfusion in last 3 No 04/08/25 10:51 Months Date of Last Transfusion (if within last 3 months) Ever experience any problems No 04/08/25 10:51 with transfusion(s)? Specify any problems Hx of Preganancy in last 3 N/A 04/08/25 10:51 Months Nurse Filling Out Transfusion [facility] 04/08/25 10:51 & Questions: Date: 04/08/25 04/08/25 10:51 Time: 10:57 04/08/25 10:51 Patient unable to answer at this time (ie. confused, unrespo /Reproduction History /Reproductive History - engineering laboratory technician: /Reproductive Hx- engineering laboratory technician Hx Now Gestational Age (in weeks): EDC: Hx Hx Para Hx Section SAB Active Medications Active Medications: Current Medications Generic Name Dose Route Start Last Admin Trade Name Freq PRN Reason Stop Dose Admin Cefazolin Sodium 2 gm/ Sodium 110 mls @ 200 mls/hr 04/15/25 13:00 Chloride IV 04/15/25 13:32 INTRAOP ONE Lactated Ringer's 1,000 mls @ 15 mls/hr 04/15/25 11:45 04/15/25 12:00 IV 15 mls/hr .Q48H MIKA Administration PFSH Medical History Alcohol use Arthritis Smoker No active medical problems Home Medications ?Medication ?Instructions ?Recorded ?Last Taken ?Type aspirin 325 mg capsule 325 mg PO DAILY #56 caps 07/28 Unknown Rx doxycycline hyclate 100 mg capsule 100 mg PO DAILY #10 caps 04/15/25 Unknown Rx oxycodone-acetaminophen 5 mg-325 1 tab PO Q6H 7 days # 42 tabs 04/15/25 Unknown Rx mg tablet Allergy/AdvReac Type Severity Reaction Status Date / Time No Known Allergies Allergy Verified 04/15/25 11:55 Surgical History (Updated 04/08/25 @ 10:56 by Lazara Marie) History of foot surgery Social History Smoking Status: Current every day smoker tobacco type: cigarettes Review of Systems (Anesthesia) ROS Narrative System reviewed and no additional complaints, except as documented.
--- NOTE | 2025-04-15 12:35 | RAD_ITS ---
PROCEDURE: ANKLE 2 VIEWS 04/15/2025 REASON FOR EXAM: ARTHRODESIS OF LEFT SUBTALAR JOINT, DEBRIDEMENT TRIGONUM TECHNIQUE: Procedure Code: RADANK2 Modality: DX Procedure: ANKLE 2 VIEWS Fluoroscopy time: 218 seconds Total images: 6 COMPARISON: None FINDINGS: Fluoroscopic spot images were obtained over the ankle during debridement and fixation of the subtalar joint. 2 screws are seen across the calcaneus into the talus. Alignment is anatomic. RAD/Ankle 2 Views IMPRESSION: Fluoroscopic localization and guidance. Correlate with procedural note. Reading Location: [id number]
[2025-04-15] MEDS: Midazolam 2 MG/2 ML Syringe IV (12:42)
[2025-04-15] MEDS: Lidocaine 1% (5 ml sdv) 5 ML Vial IV (12:49)
[2025-04-15] MEDS: fentaNYL 100 MCG/2 ML Ampul IV (12:49)
[2025-04-15] MEDS: Cefazolin 1 GM/5 ML Vial 2 GM IV (12:55)
[2025-04-15] MEDS: Lactated Ringers 2,000 ML 2000 ML IV (13:32)
--- NOTE | 2025-04-15 15:49 | PCM.POST.ANE ---
Anesthesia: Postop Eval I Current Vital Signs Temperature: 97.0 F Pulse Rate: 101 Blood Pressure: 176/95 Respiratory Rate: 20 Pulse Ox: 98 Oxygen Delivery Method: Room Air Assessment Airway patent: Yes Spontaneous unlabored respirations: Yes Mental status: Awake and Calm nausea: No Vomiting: No Anesthesia Complication: No Fluid Hydration Crystalloid volume administer (ml): 1,400 Total IV fluid infused: 1,400 Progress Note Anesthesia document: Postop Eval 1 completed: Yes
--- NOTE | 2025-04-15 16:15 | RAD_ITS ---
PROCEDURE: FOOT MIN 3 VIEWS 04/15/2025 REASON FOR EXAM: POST-SURGICAL STJ ARTHRODESIS LEFT FOOT TECHNIQUE: Procedure Code: RADFO Modality: DX Procedure: FOOT MIN 3 VIEWS Laterality: Left COMPARISON: 04/15/2025, 05/13/2020 FINDINGS: Bones: No visible fracture. No suspicious bone lesion. Redemonstrated screw fixation of the dorsal calcaneus and talus through the subtalar joint. No apparent hardware complication. Joints: Normal alignment. Joint spaces preserved. No arthropathic features. Soft tissues: Expected postoperative soft tissue swelling. Other: Overlying fiberglass splint material. RAD/Foot min 3 Views IMPRESSION: Postop changes of left subtalar joint arthrodesis with no complications. Reading [facility]
--- NOTE | 2025-04-15 16:15 | RAD_ITS ---
PROCEDURE: LEFT ANKLE 2 VIEWS 04/15/2025 REASON FOR EXAM: POST OP STJ ARTHRODEIS LEFT FOOT TECHNIQUE: Procedure Code: RADANK2 Modality: DX Procedure: ANKLE 2 VIEWS Laterality: Left COMPARISON: 05/13/2020 FINDINGS: No acute fracture or dislocation. Ankle mortise is congruent. 2 partial threaded screw fixation of the dorsal calcaneus and talus through the subtalar joint. No evidence of hardware complication. Mild presumed postoperative soft tissue swelling about the ankle/hindfoot. Overlying fiberglass splint material. RAD/Ankle 2 Views IMPRESSION: Postop changes of subtalar joint arthrodesis, no unexpected findings. Reading Location: [facility]
--- NOTE | 2025-04-15 16:38 | POSTOPAN2_ITS ---
Anesthesia Postop Eval I Sum Postop Eval Completion status Anesthesia document: Postop Eval 1 completed: Yes Anesthesia Postop Eval I Summary Anesthesia Postop Eval I Summary: Anesthesia Postop Eval I: Assessment Summary Airway patent Yes 04/15/25 15:50 [employer]ENSIC [employer]UCTURAL [email or web address] Spontaneous unlabored Yes 04/15/25 15:50 FORENSIC STRUCTURAL ENGINEER.[email or web address] respirations Mental status Awake,Calm 04/15/25 15:50 FORENSIC STRUCTURAL ENGINEER.[email or web address] nausea No 04/15/25 15:50 FORENSIC STRUCTURAL ENGINEER.[email or web address] Vomiting No 04/15/25 15:50 FORENSIC STRUCTURAL ENGINEER.[email or web address] Anesthesia Postop Eval I: Fluid Summary Crystalloid volume administer 1,400 04/15/25 15:50 FORENSIC STRUCTURAL ENGINEER.[email or web address] (ml) Colloids volume administered ( ml) Blood Product volume administered (ml) Total IV fluid infused 1,400 04/15/25 15:50 FORENSIC STRUCTURAL ENGINEER.[email or web address] Anesthesia Postop Eval I: Summary Notes Anesthesia Complication No 04/15/25 15:50 FORENSIC STRUCTURAL ENGINEER.[email or web address] Anesthesia Complication Comment: Post-operative progress note Anesthesia: Postop Eval II Evaluation Mental status: Awake Pain Level: 0 nausea: No Vomiting: No
--- NOTE | 2025-04-15 16:38 | PCM.POSTANE2 ---
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 Spontaneous unlabored Yes 04/15/25 15:50 [employer]USHER AND BINDER OPERATOR.[email or web address] respirations Mental status Awake,Calm 04/15/25 15:50 [employer]USHER AND BINDER OPERATOR.[email or web address] nausea No 04/15/25 15:50 CRUSHER AND BINDER OPERATOR.[email or web address] Vomiting No 04/15/25 15:50 CRUSHER AND BINDER OPERATOR.[email or web address] Anesthesia Postop Eval I: Fluid Summary Crystalloid volume administer 1,400 04/15/25 15:50 CRUSHER AND BINDER OPERATOR.[email or web address] (ml) Colloids volume administered ( ml) Blood Product volume administered (ml) Total IV fluid infused 1,400 04/15/25 15:50 CRUSHER AND BINDER OPERATOR.[email or web address] Anesthesia Postop Eval I: Summary Notes Anesthesia Complication No 04/15/25 15:50 CRUSHER AND BINDER OPERATOR.[email or web address] Anesthesia Complication Comment: Post-operative progress note Anesthesia: Postop Eval II Evaluation Mental status: Awake Pain Level: 0 nausea: No Vomiting: No
== END 2025-04-15 17:19 | disposition home or self-care (01) ==
LOC: SDC 11:29 → AC 11:30
PROVIDERS: PCP Family Medicine; Referring Provider Student in an Organized Health Care Education/Training Program; Visit Provider Student in an Organized Health Care Education/Training Program
PROC: (CPT 28725; principal; 2025-04-15 12:45)
DX: M19.072 Primary osteoarthritis, left ankle and foot (principal); Z79.82 Long term (current) use of aspirin; Z79.899 Other long term (current) drug therapy; F17.210 Nicotine dependence, cigarettes, uncomplicated
CPT/HCPCS: 28725; 28120; 64450; 01480; 73600; 73630; 76000; C1713; J2405